=== PATIENT | female | born 1935 | race African-American/Black ===

== ENCOUNTER 2020-02-10 23:40 | Inpatient (IN) | payer MEDICARE, BC ==
[~2020-02-10] VITALS: Ht 165.1 cm; Wt 56.7 kg
--- NOTE | 2020-02-11 00:35 | NUR ---
PT BIBSELF C/O L SIDED CP SINCE 2199. NON RADIATING. PT PLACED ON MONITOR AND PULSE OX. NO ACUTE DISTRESS NOTED. PT C/O HIGH BP. PER ASSESSMENT SKIN WARM AND INTACT. AWAITING MD FOR EVAL.
--- NOTE | 2020-02-11 01:16 | NUR ---
COVID SWAB SENT TO LAB
--- NOTE | 2020-02-11 01:16 | NUR ---
SPEAKING TO PT AND FAMILY.
--- NOTE | 2020-02-11 01:21 | NUR ---
PT STATED SHE TAKES LOSARTAN BUT UNABLE TO STATE DOSE AND OTHER MEDICATIONS.
[2020-02-11 01:24] LABS: CALCIUM, SERUM 9.7 mg/dL (8.5-10.1); CARBON DIOXIDE 25 mmol/L (21-32); CHLORIDE 98 mmol/L (98-107); CREATININE 1.4 mg/dL (0.6-1.3); GLUCOSE 123 mg/dL (74-106); POTASSIUM 3.7 mmol/L (3.5-5.1); SODIUM SERUM 133 mmol/L (136-145); UREA NITROGEN, BLOOD 13 mg/dL (7-18)
[2020-02-11 01:25] LABS: BASOPHILS # (AUTO) 0.1 /CMM (0.0-0.2); BASOPHILS % (AUTO) 1.7 % (0.0-2.0); EOSINOPHILS % (AUTO) 2.1 % (0.0-6.0); HEMATOCRIT 34 % (33-45); HEMOGLOBIN 11.2 g/dL (11.5-14.8); LYMPHOCYTES % (AUTO) 25.7 % (20.0-44.0); MEAN CORPUSCULAR HGB CONC 33 g/dl (31.0-36.0); MEAN CORPUSCULAR VOLUME 92 fL (82-100); MONOCYTES # (AUTO) 0.7 /CMM (0.1-1.30); MONOCYTES % (AUTO) 8.8 % (2.0-12.0); NEUTROPHILS # (AUTO) 4.8 /CMM (1.8-8.9); NEUTROPHILS % (AUTO) 61.7 % (43.0-81.0); PLATELET COUNT (AUTO) 345 /CMM (150-450); RED BLOOD CELL COUNT(AUTO) 3.65 MIL/uL (4.0-5.2); WHITE BLOOD COUNT (AUTO) 7.8 K/uL (4.3-11.0)
--- NOTE | 2020-02-11 01:36 | NUR ---
PT AMBUALTED TO THE RESTROOM
--- NOTE | 2020-02-11 01:38 | NUR ---
DR. KAYODE BAEZ PER GONZ[place]LEZ COOL ORDER.
[2020-02-11] MEDS ORDERED: ENOXAPARIN SODIUM 60 MG/0.6 ML DISP.SYRIN SQ ONE ×2 (02:00→02:02)
--- NOTE | 2020-02-11 02:08 | NUR ---
LAB CALLED REGARDING NEGATIVE COVID RESULT.
--- NOTE | 2020-02-11 02:11 | NUR ---
ER SPOKE TO DR. HEADLEY REGARDING PT ADMISSION.
--- NOTE | 2020-02-11 02:21 | NUR ---
SPOKE TO PT'S DAUGHTER. SHE STATED SHE WILL PROVIDE MED LIST IN THE AM.
--- NOTE | 2020-02-11 02:39 | NUR ---
REPORT GIVEN TO ESMER. PT TRANSFERED PER ACLS PROTOCOL
[2020-02-11 02:40] VITALS: BP 136/80
--- NOTE | 2020-02-11 02:40 | NUR ---
STOP ATTACHERPAINTER SET NOTE: Received report from [facility]. Received patient on [facility]. Patient awake, alert, and oriented x4. Patient able to make needs known. Patient able to ambulate with steady gait. Patient on room air with no SOB or respiratory distress. Patient denies pain at this time. Patient stated not feeling chest pain. On cardiac monitoring, sinus rhythm. IV access on right AC, dry, intact, patent, no redness or infiltration. Oriented patient to her room and the use of the call light. Safety precaution in place, bed in lowest level, bed is locked, side rails x2 are up, and call light is within reach. Will continue to monitor.
[2020-02-11] MEDS ORDERED: ONDANSETRON HCL/PF 4 MG/2 ML VIAL IVP PRN (03:30)
[2020-02-11] MEDS ORDERED: Z GUARD REMEDY 2 OZ OINT TP PRN (03:30)
[2020-02-11] MEDS ORDERED: MAGNESIUM HYDROXIDE 30 ML UDC PO PRN (03:30)
[2020-02-11] MEDS ORDERED: MAG HYDROX/AL HYDROX/SIMETH 30 ML UDC PO PRN (03:30)
[2020-02-11] MEDS ORDERED: MORPHINE SULFATE INJ 2 MG/ML DISP.SYRIN IV PRN (03:30)
[2020-02-11] MEDS ORDERED: HYDROCODONE/APAP 5/325MG TABLET PO PRN (03:30)
[2020-02-11 04:00] VITALS: BP 133/87
--- NOTE | 2020-02-11 04:33 | NUR ---
MS RN NOTES STATISTICS MANAGER CALLED TO INFORM CRITICAL TROPONIN LAB OF 2.855; PRIMARY NURSE INFORMED; CHARGE NURSE AWARE;
--- NOTE | 2020-02-11 04:47 | NUR ---
EMBROIDERY PATTERNMAKER NOTE: Received call from Lab. Patient troponin 2.855. Made MD aware. Awaiting reply.
[2020-02-11] MEDS: NITROGLYCERIN PACKET 1 GM PACKET TOP SCH ×3 (05:16→21:09)
--- NOTE | 2020-02-11 06:30 | NUR ---
PERSONAL INJURY LITIGATION [place] CLOSING NOTE: Patient in bed awake and alert. Able to make needs known. Patient shows no signs of SOB or respiratory distress. Patient breathing even and unlabored on room air. Safety precaution in place, bed is in the lowest level, bed is locked, side rails x2 are up, and call light is within reach. Will endorse to next shift.
--- NOTE | 2020-02-11 07:01 | NUR ---
FAC ENGINEER NOTE: Charge nurse notified troponin level trending upward. No orders at this time.
--- NOTE | 2020-02-11 07:30 | NUR ---
RN OPENING NOTES RECEIVED PT IN BED. AWAKE ALERT AND ORINETED X 4. NO CARDIAC OR RESPIRATORY DISTRESS NOTED. NO SOB NOTED. SATURATING WELL ON ROOM AIR, NO COMPLAINTS OF CHEST PAIN OR TIGHTNESS AT THIS TIME. ON CARDIAC TELE MONITOR SHOWING SR WITH 1ST DEGREE AV BLOCK. AMBULATORY WITH STEADY GAIT.IV ACCESS NOTED ON R AC G20. INTACT AND PATENT AND FLUSHING WELL. NO S/S OF INFILTRATION NOTED. SAFETY PRECAUTIONS IN PLACE. BED LOCKED AND IN LOW POSITION. SIDE RAILS UP X2. BED ALARM ON. CALL LIGHT WITHIN REACH.
--- NOTE | 2020-02-11 07:45 | NUR ---
CARDIOLOGY CONSULT DR BALBUENA CURRENTLY IN THE UNIT. MADE MD ARE REGARDING PTS TROPONIN LEVEL OF 2.855. PER MD, HE WILL PUT ORDERS IN.
[2020-02-11 08:32] VITALS: BP 112/56
[2020-02-11] MEDS: ASPIRIN 325 MG TABLET PO SCH (08:35)
[2020-02-11] MEDS: METOPROLOL TARTRATE 25 MG TABLET PO SCH ×2 (08:35→21:08)
[2020-02-11] MEDS: ATORVASTATIN 10 MG TABLET PO SCH (08:51)
[2020-02-11] MEDS: VALSARTAN 80 MG TABLET PO SCH (08:51)
[2020-02-11] MEDS ORDERED: ESTR1TAB17 PO (08:56)
[2020-02-11] MEDS ORDERED: MINO2.5T PO (08:56)
[2020-02-11] MEDS ORDERED: CARV25TA2 PO (08:56)
[2020-02-11] MEDS ORDERED: LORA2TAB95 PO (08:56)
[2020-02-11] MEDS ORDERED: LOSA50TA39 PO (08:56)
[2020-02-11] MEDS ORDERED: OMEP40CA13 PO (08:56)
[2020-02-11] MEDS ORDERED: MEDR10TA10 PO (08:56)
[2020-02-11] MEDS ORDERED: CARVEDILOL 12.5 MG TABLET PO SCH (09:00)
[2020-02-11] MEDS ORDERED: IOHEXOL-350 100 ML VIAL IV ONE (09:04)
[2020-02-11] MEDS ORDERED: IV NS 0.9% 250 ML IV ONE (09:05)
--- NOTE | 2020-02-11 09:10 | NUR ---
CT ANGIO CONSENT OBTAINED FOR CT ANGIO. R AC G20 IV ACCESS IS INTACT AND PATENT AND FLUSHING WELL. PT WAS PICKED UP FOR THE PROCEDURE.
[2020-02-11] MEDS ORDERED: METOPROLOL TARTRATE INJ 5 MG/5 ML AMPUL ONE ×3 (09:23→11:14)
[2020-02-11] MEDS: METOPROLOL TARTRATE INJ 5 MG/5 ML AMPUL IVP PRN ×2 (09:27→09:32)
[2020-02-11] MEDS ORDERED: NITROGLYCERIN 0.4 MG/TAB BOTTLE SL ONE (09:30)
[2020-02-11 09:33] LABS: THYROID STIMULATING HORMONE 1.577 uIU/mL (0.358-3.74)
[2020-02-11 09:56] LABS: PHOSPHORUS 2.9 mg/dL (2.5-4.9)
--- NOTE | 2020-02-11 09:57 | NUR ---
RN NOTES: CTA NOTES; Patient able to tolerate procedure, without any discomfort. Safety measures provided.
--- NOTE | 2020-02-11 10:15 | NUR ---
CT ANGIO PT BACK FROM CT ANGIGRAM
--- NOTE | 2020-02-11 11:30 | NUR ---
CT ANGIO RESULTS DR. LAWS MADE AWARE REGARDING PTS CT ANGIOGRAM RESULTS. WELL EKG DONE THIS AM. NNO ORDERS GIVEN.
[2020-02-11 13:23] LABS: APPEARANCE,URINE CLEAR (CLEAR); BILIRUBIN,URINE NEGATIVE (NEGATIVE); BLOOD, URINE SMALL Ery/uL (NEGATIVE); COLOR,URINE YELLOW (YELLOW); KETONES,URINE NEGATIVE (NEGATIVE); LEUKOCYTE ESTERASE ,URINE NEGATIVE (NEGATIVE); NITRITE, URINE NEGATIVE (NEGATIVE); PH,URINE 6.5 (5.0-8.0); PROTEIN,URINE NEGATIVE (NEGATIVE); UGLUCOSE NEGATIVE (NEGATIVE); UROBILINOGEN,URINE 0.2 EU/dL (0.2)
[2020-02-11 13:35] LABS: CREATININE, URINE 55.4 MG/DL (30.0-125.0); URINE TOTAL PROTEIN 13.9 mg/dL (0-11.9)
[2020-02-11] MEDS: ACETAMINOPHEN 325 MG TABLET PO PRN (13:39)
[2020-02-11 13:40] LABS: BACTERIA,URINE Few /HPF (None Seen); SQUAMOUS EPITHELIAL CELL,UR Few /HPF (None Seen); WBC,URINE 0-2 /HPF (0-3)
[2020-02-11 14:42] LABS: EOSINOPHIL,URINE None Seen
--- NOTE | 2020-02-11 15:00 | NUR ---
MEDLIST REVIEWED MEDS WITH PT. PER PT CURRENT MEDS ARE OKAY, HOWEVER THE FOLLOWING ARE MISSING: - ESTRADIOL 0.5MG QD - PROGESTERONE MEDROXY 10MG QD - OMEPRAZOLE 40MG QD BEFORE BREAKFAST - ATIVAN 1MG QHS FOR SLEEP NOTIFIED DR. SCHWARTZ. PER , OKAY TO CONTINUE WITH ALL THE MEDS EXCEPT ESTRADIOL. PER , HOLD ESTRADIOL FOR NOW. PT MADE AWARE.
--- NOTE | 2020-02-11 15:04 | NUR ---
KIDNEY US DR. SHULTZ MADE AWARE REGARDING KIDNEY ULTRASOUND RESULTS. NO NEW ORDERS GIVEN.
[2020-02-11 16:00] VITALS: BP 121/78
--- NOTE | 2020-02-11 19:05 | NUR ---
RN CLOSING NOTES PT IN BED. AWAKE ALERT AND ORINETED X 4. NO CARDIAC OR RESPIRATORY DISTRESS NOTED. NO SOB NOTED. SATURATING WELL ON ROOM AIR, NO COMPLAINTS OF CHEST PAIN OR TIGHTNESS AT THIS TIME. ON CARDIAC TELE MONITOR SHOWING SR WITH 1ST DEGREE AV BLOCK. AMBULATORY WITH STEADY GAIT.IV ACCESS NOTED ON R AC G20 AND L AC G18. INTACT AND PATENT AND FLUSHING WELL. NO S/S OF INFILTRATION NOTED. ALL NEEDS MET AND ATTENDED. NO COMPLAINTS OF CHEST PAIN THROUGHOUT THE SHIFT. ALL DUE MEDS ADMINISTERED. NO ASE NOTED. SAFETY PRECAUTIONS IN PLACE. BED LOCKED AND IN LOW POSITION. SIDE RAILS UP X2. BED ALARM ON. CALL LIGHT WITHIN REACH.
--- NOTE | 2020-02-11 19:14 | NUR ---
TROPONIN LEVEL TROPONIN LEVELS CAME BACK AT 1.453. TRENDING DOWN. Addendum: 02/11/20 at 1915 by ROBSON DWYER RN MADE POLYMER SPECIALIST NURSE AWARE.
[2020-02-11 20:00] VITALS: BP 122/71
--- NOTE | 2020-02-11 20:09 | NUR ---
MS/TELE/RN DURING INITIAL ROUNDING, PATIENT WAS ON BED AWAKE, ALERT, ORIENTED, COMFORTABLE, NO C/O PAIN , NO DISTRESS NOTED, CALL LIGHT IN REACH. WILL MONITOR.
[2020-02-11] MEDS: LORAZEPAM 1 MG TABLET PO SCH (21:07)
[2020-02-11] MEDS ORDERED: ENOXAPARIN SODIUM 60 MG/0.6 ML DISP.SYRIN SQ SCH (22:00)
[2020-02-12] VITALS: BP 113/76
--- NOTE | 2020-02-12 00:44 | NUR ---
MS/TELE/RN PATIENT IS SLEEPING AT THIS TIME, APPEAR COMFORTABLE, NO SIGNS OF DISTRESS NOTED, CALL LIGHT IN REACH, WILL CONTINUE TO MONITOR.
[2020-02-12 03:36] LABS: BASOPHILS # (AUTO) 0.1 /CMM (0.0-0.2); BASOPHILS % (AUTO) 1.2 % (0.0-2.0); EOSINOPHILS % (AUTO) 3.8 % (0.0-6.0); HEMATOCRIT 29 % (33-45); HEMOGLOBIN 9.6 g/dL (11.5-14.8); LYMPHOCYTES # (AUTO) 1.8 /CMM (0.8-4.8); LYMPHOCYTES % (AUTO) 37.6 % (20.0-44.0); MEAN CORPUSCULAR HGB CONC 34 g/dl (31.0-36.0); MEAN CORPUSCULAR VOLUME 91 fL (82-100); MONOCYTES # (AUTO) 0.6 /CMM (0.1-1.30); MONOCYTES % (AUTO) 12.9 % (2.0-12.0); NEUTROPHILS # (AUTO) 2.1 /CMM (1.8-8.9); NEUTROPHILS % (AUTO) 44.5 % (43.0-81.0); PLATELET COUNT (AUTO) 283 /CMM (150-450); RED BLOOD CELL COUNT(AUTO) 3.12 MIL/uL (4.0-5.2); WHITE BLOOD COUNT (AUTO) 4.8 K/uL (4.3-11.0)
[2020-02-12 03:46] LABS: ALANINE AMINOTRANSFERASE 34 U/L (12-78); ALBUMIN 3.3 g/dL (3.4-5.0); ALKALINE PHOSPHATASE 41 U/L (46-116); ASPARTATE AMINOTRANSFERASE 33 U/L (15-37); BILIRUBIN,TOTAL 0.4 mg/dL (0.2-1.0); CALCIUM, SERUM 9.7 mg/dL (8.5-10.1); CARBON DIOXIDE 25 mmol/L (21-32); CHLORIDE 101 mmol/L (98-107); CREATININE 1.1 mg/dL (0.6-1.3); GLUCOSE 102 mg/dL (74-106); MAGNESIUM 1.9 mg/dL (1.8-2.4); PHOSPHORUS 3.8 mg/dL (2.5-4.9); POTASSIUM 4.1 mmol/L (3.5-5.1); SODIUM SERUM 135 mmol/L (136-145); TOTAL PROTEIN, SERUM 6.7 g/dL (6.4-8.2); UREA NITROGEN, BLOOD 14 mg/dL (7-18)
[2020-02-12 03:48] LABS: CHOLESTEROL 179 mg/dL (<200); CREATINE KINASE, TOTAL 173 U/L (26-192); HDL CHOLESTEROL 73 mg/dL (40-60); LDL 95 mg/dL (0-99); TRIGLYCERIDES 55 mg/dL (30-150)
[2020-02-12 04:00] VITALS: BP 149/82
[2020-02-12] MEDS: NITROGLYCERIN PACKET 1 GM PACKET TOP SCH (05:06)
--- NOTE | 2020-02-12 06:11 | NUR ---
MS/TELE/RN PATIENT IS AWAKE AT THIS TIME, COMFORTABLE, NO C/O PAIN, NO DISTRESS NOTED, CALL LIGHT IN REACH, ALL NEEDS ATTENDED AT THIS TIME, WILL CONTINUE TO MONITOR.
[2020-02-12] MEDS ORDERED: OMEPRAZOLE 20 MG CAPSULE.DR PO SCH (07:30)
--- NOTE | 2020-02-12 07:30 | NUR ---
RN OPENING NOTES RECEIVED PT IN BED. AWAKE ALERT AND ORINETED X 4. NO CARDIAC OR RESPIRATORY DISTRESS NOTED. NO SOB NOTED. SATURATING WELL ON ROOM AIR, NO COMPLAINTS OF CHEST PAIN OR TIGHTNESS AT THIS TIME. ON CARDIAC TELE MONITOR SHOWING SR WITH 1ST DEGREE AV BLOCK. AMBULATORY WITH STEADY GAIT.IV ACCESS NOTED ON R AC G20 AND L AC G18. INTACT AND PATENT AND FLUSHING WELL. NO S/S OF INFILTRATION NOTED. TROPONINS HAS BEEN TRENDING DOWN. SAFETY PRECAUTIONS IN PLACE. BED LOCKED AND IN LOW POSITION. SIDE RAILS UP X2. BED ALARM ON. CALL LIGHT WITHIN REACH. WILL CONT TO MONITOR.
[2020-02-12 08:00] VITALS: BP 159/82
[2020-02-12] MEDS: ASPIRIN 325 MG TABLET PO SCH (08:24)
[2020-02-12] MEDS: ATORVASTATIN 10 MG TABLET PO SCH (08:24)
[2020-02-12] MEDS: VALSARTAN 80 MG TABLET PO SCH (08:25)
[2020-02-12] MEDS: PANTOPRAZOLE 40 MG TABLET.DR PO SCH (08:26)
[2020-02-12] MEDS: METOPROLOL TARTRATE 25 MG TABLET PO SCH (08:26)
[2020-02-12] MEDS: medroxyPROGESTERone ACET 5 MG TABLET PO SCH (08:26)
[2020-02-12] MEDS: AMLODIPINE BESYLATE 5 MG TABLET PO SCH (10:00)
[2020-02-12 16:00] VITALS: BP 142/70
--- NOTE | 2020-02-12 17:30 | NUR ---
REFUSING DVT PUMPS PT REFUSING TO USE DVT PUMPS. SHE SAID SHE WALKS VERY FREQUESTLY TO USE THE BATHROOM AND DOES NOT WANT TO BE HOOKED UP ON THE MACHINE ALL THE TIME.
--- NOTE | 2020-02-12 18:27 | NUR ---
RN CLOSING NOTES PT IN BED. AWAKE ALERT AND ORINETED X 4. NO CARDIAC OR RESPIRATORY DISTRESS NOTED. NO SOB NOTED. SATURATING WELL ON ROOM AIR, NO COMPLAINTS OF CHEST PAIN OR TIGHTNESS AT THIS TIME. AMBULATORY WITH STEADY GAIT.IV ACCESS NOTED ON R AC G20 AND L AC G18. INTACT AND PATENT AND FLUSHING WELL. NO S/S OF INFILTRATION NOTED. ALL NEEDS MET AND ATTENDED. NO COMPLAINTS OF CHEST PAIN THROUGHOUT THE SHIFT. ALL DUE MEDS ADMINISTERED. NO ASE NOTED. SAFETY PRECAUTIONS IN PLACE. BED LOCKED AND IN LOW POSITION. SIDE RAILS UP X2. BED ALARM ON. CALL LIGHT WITHIN REACH.
[2020-02-12 20:15] VITALS: BP 135/74
[2020-02-12] MEDS ORDERED: ENOXAPARIN SODIUM 40 MG/0.4 ML DISP.SYRIN SQ SCH (21:00)
[2020-02-12] MEDS ORDERED: METOPROLOL TARTRATE 25 MG TABLET PO SCH (21:00)
[2020-02-12] MEDS ORDERED: DOXAZOSIN MESYLATE (1 MG) 1 MG TABLET PO SCH (22:00)
[2020-02-12] MEDS: LORAZEPAM 1 MG TABLET PO SCH (22:22)
[2020-02-12] MEDS: ACETAMINOPHEN 325 MG TABLET PO PRN (22:22)
--- NOTE | 2020-02-13 07:10 | NUR ---
MS RN OPENING NOTE RECEIVED PT AWAKE IN BED AT THIS TIME. AOX4. PT ABLE TO MAKE NEEDS KNOWN. NO SOB NOTED, NO S/S OF ANY APPARENT DISTRESS NOTED. NO C/O PAIN AT THIS TIME. RESPIRATIONS ARE EVEN AND UNLABORED WITH EQUAL RISE AND FALL IN CHEST. IV ACCESS NOTED IN RAC G#20, PATENT, INTACT AND FLUSHING WELL. FALL AND SAFETY PRECAUTION IN PLACE AND MAINTAINED AT ALL TIMES. BED IN LOWEST LOCKED POSITION, HOB ELEVATED, RAILS UP X 2, CALL LIGHT WITHIN REACH. WILL CONTINUE TO MONITOR
[2020-02-13 08:00] VITALS: BP 152/92
[2020-02-13] MEDS ORDERED: METOPROLOL SUCCINATE 50 MG TAB.SR.24H PO SCH (08:00)
[2020-02-13 08:06] LABS: PTH, INTACT 33 pg/mL (15-65)
[2020-02-13] MEDS: PANTOPRAZOLE 40 MG TABLET.DR PO SCH (08:18)
[2020-02-13] MEDS: VALSARTAN 80 MG TABLET PO SCH (08:22)
[2020-02-13] MEDS: ASPIRIN 325 MG TABLET PO SCH (08:22)
[2020-02-13] MEDS: ATORVASTATIN 10 MG TABLET PO SCH (08:22)
[2020-02-13 08:23] VITALS: BP 152/92
[2020-02-13] MEDS: AMLODIPINE BESYLATE 5 MG TABLET PO SCH (08:23)
[2020-02-13] MEDS: medroxyPROGESTERone ACET 5 MG TABLET PO SCH (08:24)
[2020-02-13] MEDS ORDERED: AMLO5TAB9 PO (11:52)
[2020-02-13] MEDS ORDERED: ATOR10TA PO (11:52)
[2020-02-13] MEDS ORDERED: METO50TA7 PO (11:52)
[2020-02-13] MEDS ORDERED: DOXA1TAB17 PO (11:52)
[2020-02-13] MEDS ORDERED: VALS80TA2 PO (11:52)
[2020-02-13] MEDS ORDERED: ASPI-992 PO (11:52)
[2020-02-13 15:15] LABS: *SPE A/G RATIO 1.1 (0.7-1.7); *SPE ALBUMIN 3.2 g/dL (2.9-4.4); *SPE ALPHA-1-GLOBULIN 0.3 g/dL (0.0-0.4); *SPE ALPHA-2-GLOBULIN 0.6 g/dL (0.4-1.0); *SPE BETA GLOBULIN 0.8 g/dL (0.7-1.3); *SPE GLOBULIN, TOTAL 2.9 g/dL (2.2-3.9); *SPE M-SPIKE Not Observed g/dL (Not Observed); *SPEGAMMA GLOBULIN 1.1 g/dL (0.4-1.8)
--- NOTE | 2020-02-13 15:15 | NUR ---
COMPUTER SYSTEMS SUPPORT SPECIALIST NOTES PT DISCHARGED TO HOME AT THIS TIME. PT IN MEDICALLY STABLE CONDITION. ALL CARE, NEEDS, TREATMENT AND MEDICATIONS ADMINISTERED ANTICIPATED PER ORDER. PT KEPT CLEAN AND DRY. ALL DISCHARGE INSTRUCTIONS PROVIDED TO PT. PT VERBALIZED UNDERSTANDING. PT'S BELONGINGS ACCOUNTED FOR, SIGNED BY PT AND FILED IN CHART. IV REMOVED, PRESSURE APPLIED, SECURE WITH GAUZE AND TAPE. NO BLEEDING OR INFILTRATION NOTED. PT TRANSPORTED TO [facility] BY NAMITA DE LA CRUZ. PT PICKED UP BY HER DAUGHTER
== END 2020-02-13 15:20 | disposition home or self-care (01) | DRG 280 ==
LOC: ER 23:43 → MED 02-11 02:15 → TELE 02-11 05:36 → MED 02-12 11:17
PROVIDERS: ADMIT Student in an Organized Health Care Education/Training Program
DX: I21.4 Non-ST elevation (NSTEMI) myocardial infarction (principal); N17.0 Acute kidney failure with tubular necrosis; F41.9 Anxiety disorder, unspecified; E78.5 Hyperlipidemia, unspecified; N28.1 Cyst of kidney, acquired; I25.10 Atherosclerotic heart disease of native coronary artery without angina pectoris; I12.9 Hypertensive chronic kidney disease with stage 1 through stage 4 chronic kidney disease, or unspecified chronic kidney disease; N18.9 Chronic kidney disease, unspecified; E11.22 Type 2 diabetes mellitus with diabetic chronic kidney disease
CPT/HCPCS: 36415; 71045-TC; 75574; 76770-TC; 80048-TC; 80053-TC; 80061-TC; 81000-TC; 82550-TC; 82570-TC; 82728-TC; 83540-TC; 83735-TC; 83970; 84100-TC; 84155; 84155-TC; 84165; 84300-TC; 84439-TC; 84443-TC; 84484-TC; 85025-TC; 85652-TC; 87081-TC; 93307-TC; C9803-CS; G0378; J1650; J2270; J3490; J7050; Q9967

== ENCOUNTER 2020-05-09 11:48 | Outpatient (CLI) | payer MEDICARE, BC ==
[~2020-05-09 11:48] MED LIST: AMLO-212 PO; ASPI-992 PO; ATOR10TA PO; DOXA1TAB4 PO; ESTR1TAB17 PO; LORA2TAB95 PO; MEDR10TA10 PO; METO50TA7 PO; OMEP40CA13 PO; VALS80TA2 PO
== END 2020-05-09 23:59 | disposition home or self-care (01) ==
LOC: RAD 11:48
DX: Z01.818 Encounter for other preprocedural examination (principal); I70.0 Atherosclerosis of aorta; M47.814 Spondylosis without myelopathy or radiculopathy, thoracic region; I77.819 Aortic ectasia, unspecified site; Z96.612 Presence of left artificial shoulder joint
CPT/HCPCS: 71046